=== PATIENT | male | born 1940 | race Caucasian/White ===

== ENCOUNTER → 2016-12-02 | Day surgery (SDC) | payer BC ==
[2016-11-26 12:52] VITALS: Ht 180.3 cm; Wt 90.9 kg
[~2016-12-02] VITALS: Ht 180.3 cm; Wt 90.9 kg
[~2016-12-02] MED LIST: ACETAMINOPHEN 325 MG TAB PO PRN; ALBUT/IPRATROP 3MG/0.5MG NEB 3 ML VIAL INH ONE; ALBUT/IPRATROP 3MG/0.5MG NEB 3 ML VIAL ONE; AMLO-114 PO; APR25 PO; ASPI-435 PO; ATOR-24 PO; ATROPINE SULFATE 1% OP OINT PER APPLICATION CHARGE ONE; BUPIVACAINE HCL 0.75% 10 ML AMP/VIAL ONE; CEFAZOLIN SOD 1 GM VIAL ONE; CLOP1TAB5 PO; DEXAMETHASONE SOD INJ 4 MG/ML VIAL ONE; EpINEphrine INJ 1MG/ML AMP 1 MG/ML AMP ONE; FENTANYL CITRATE INJ 50 MCG/1 ML 2 ML VIAL IV PRN; FRS/40 PO; HYALURONIDASE HUMAN 150 UNIT/ML INJ ONE; INDOCYANINE GREEN 25 MG/10 ML ONE; LACTATED RINGER'S 1000ML 1,000 ML IV PRN; LACTATED RINGER'S 1000ML 500 ML IV SCH; LIDOCAINE HCL 2% 2 ML VIAL (20MG/ML) ONE; LIDOCAINE MPF 4% INJ INJ ONE; METO50TA7 PO; MIDAZOLAM HCL 1 MG/ML 2ML VIAL ONE; NAPR-998 PO; NEOMYCIN/POLYMYX/DEXAMETH OP OINT PER APP CHARGE ONE; NIFE30TA83 PO; ONDANSETRON INJ 2 MG/ML 2 ML VIAL IV PRN; POTA10CA28 PO; PROPARACAINE 0.5% OP SOLN PER DROP CHARGE OPR SCH; PROPOFOL IV EMULSION 10 MG/ML 20 ML VIAL IV ONE; SUPER BETA PROSTATE PO; TAMS0.4C38 PO; TIMOLOL MALEATE 0.5% OP SOLN PER DROP CHARGE ONE; TRIAMCINOLONE ACETONIDE OPHTH 40 MG/ML VIAL STERILE IO ONE; respimat
[2016-12-02] MEDS: PHENYLEPHRINE HCL 2.5% OP SOLN PER DROP CHARGE OPR SCH ×2 (11:02→11:07)
[2016-12-02] MEDS: TROPICAMIDE 1% OP SOLN PER DROP CHARGE OPR SCH ×2 (11:03→11:08)
--- NOTE | 2016-12-02 11:26 | History & Physical Bridge - [place] ---
H&P Re-Evaluation Bridge Note: Pt has a epiretinal membrane in the right eye and is here for vitrectomy of the right eye. I have examined the patient, reviewed the History & Physical and in the interval since the performance of the History & Physical I have noted the following changes of clinical significance: No changes noted
--- NOTE | 2016-12-02 12:32 | Discharge Instructions-SurgCtr ---
Discharge Instructions Visit Reason for Visit: Right Eye Epiretinal Membrane Discharge Discharge Diagnosis / Problem: same Discharge Goals Goal(s): Improve function Activity Recommendations Activity Limitations: per Instructions/Follow-up section Anesthesia . Post Anesthesia Instructions: If you have had General Anesthesia or IV Sedation: * Do not drive today. * Resume driving when surgeon permits. * Do not make important decisions or sign legal documents today. * Call surgeon for: 1. Temperature elevations greater than 101 degrees F. 2. Uncontrollable pain. 3. Excessive bleeding. 4. Persistent nausea and vomiting. 5. Medication intolerance (nausea, vomiting or rash). * For nausea and vomiting use only clear liquids such as: tea, soda, bouillon until nausea subsides, then gradually increase diet as tolerated. * If you have any concerns or questions, call your surgeon's office. If physician is unavailable and it is an emergency, call 911 or go to the nearest emergency room. . Instructions / Follow-Up Instructions / Follow-Up * May take Tylenol if needed for discomfort. * Do NOT remove eye shield. * NO straining, heavy lifting (>15 pounds) or bending below waist. * Avoid getting water or soap directly into operative eye. * Do NOT rub eye. If you experience increasing eye pain not relieved by medication, please contact us immediately at [phone]. If you are unable to reach someone at the above number, call [phone] and ask to speak with the EYE DOCTOR SWIMMING PROFESSOR. Inform them that you are a Dr. Ashraf patient who had recent surgery. Procedures Procedures Performed: Right Eye 23 Gauge Vitrectomy, Membrane Peeling Pending Studies Studies pending at discharge: no Medical Emergencies . Who to Call and When: Medical Emergencies: If at any time you feel your situation is an emergency, please call 911 immediately. . Non-Emergent Contact Non-Emergency issues call your: Pharmacometrician . . "Provider Documentation" section prepared by Jacques Ashraf.
--- NOTE | 2016-12-02 12:34 | [facility] Operative Report ---
Operative Report PREOPERATIVE DIAGNOSIS: Epiretinal membrane, right eye. ICD10: H35.371 POSTOPERATIVE DIAGNOSIS: same. PROCEDURE: 1. Pars plana vitrectomy, 23 gauge. 2. Membrane peeling of the internal limiting membrane and overlying epiretinal membrane. All to the right eye. CPT CODE: 41966 SURGEON: Jacques Ashraf D.O. COMPLICATIONS: None. ESTIMATED BLOOD LOSS: None. SPECIMENS: None. ANESTHESIA: Retrobulbar block and MAC. INDICATIONS FOR PROCEDURE: The patient has an epiretinal membrane that is visually significant. Vitrectomy surgery is indicated to decrease risk of vision loss and potentially improve vision. CONSENT: The risks, benefits and alternatives were discussed with the patient including but not limited to decreased visual acuity, failure to achieve desired results, loss of the eye, infection, pain, glaucoma, lens changes, retinal tears, retinal detachment, the need for more procedures, drooping of the eyelid, blindness, and double vision. The patient is aware of risks and consents to the surgery. Consent is signed and on the chart. OPERATION AND FINDINGS: The patient was brought to the operating room where the patient was identified by name, date, and medical record number. The surgical site was confirmed with the informed written consent. The patient was sedated by the anesthesiology team after which a 50:50 mixture of 4% lidocaine and 0.75% bupivacaine with hyaluronidase was administered in a standard retrobulbar fashion. A total of 4 ml was administered without difficulty. The patient was then prepped and draped in the usual sterile manner for retinal surgery. A wire lid speculum was placed and an Can 23-gauge trocar cannula system was employed. The inferior temporal trocar cannula was first placed in an angled fashion 3.75mm posterior to the surgical limbus and the infusion cannula was inserted into this cannula after which the intravitreal position was verified prior to turning the infusion on. Two more trocar cannulas were then inserted in an angled fashion, one in the superior temporal, and one in the superior nasal quadrant both 3.75mm posterior to the surgical limbus. A light pipe and vitrector were then introduced into the eye and the BIOM wide angle viewing system was brought into place. Standard core vitrectomy was performed the vitreous was insured to be totally detached from the posterior pole with the aid of the vitrector. Next 0.05ml of indocyanine green was placed over the macular surface to stain the internal limiting membrane. This was washed from the eye after 10 seconds. At this point a flat contact lens was placed on the surface of the eye and a flex scraper and ILM forceps were used to gently peel the internal limiting membrane and overlying epiretinal membrane off of the macular surface without difficulty. At this point scleral depression was performed for 360 degrees and no retinal tears or detachments were noted. 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 The trocar cannulas were then removed and found to be water tight. The intraocular pressure was found to be within normal limits by palpation and subconjunctival injections of Kefzol and dexamethasone were administered inferiorly and superiorly. The wire lid speculum was removed. Maxitrol was applied to the surface of the eye. A light patch and shield were taped over the surface of the eye and the patient left the Operating Room in stable condition having tolerated the procedure well. DISPOSITION: The patient has an appointment the following morning in the Ophthalmology Clinic. The patient is to call immediately if there are any problems overnight. I attest to the content of the Intraoperative Record and any orders documented therein. Any exceptions are noted below.
[2016-12-02 12:36] VITALS: TEMP 36.3
--- NOTE | 2016-12-02 12:52 | Anesthesia Progress Nt - [facility] ---
Anesthesia Post Op Note Date & Time Dec 02, 2016 at 12:52 Vital Signs Pain Intensity: 0 Vital Signs Past 12 Hours Date Time Temp Pulse Resp B/P Pulse Ox O2 Delivery O2 Flow Rate FiO2 12/02/16 12:36 36.3 74 16 174/77 95 Room Air 12/02/16 10:50 36.3 78 20 161/69 95 Room Air Notes Mental Status: alert / awake / arousable, participated in evaluation Pt Amnestic to Procedure: Yes Nausea / Vomiting: adequately controlled Pain: adequately controlled Airway Patency, RR, SpO2: stable & adequate BP & HR: stable & adequate Hydration State: stable & adequate Anesthetic Complications: no major complications apparent Pt doing well.
[2016-12-02 13:00] VITALS: BP 159/75; PULSE 76; O2SAT 94
== END | disposition home or self-care (01) ==
LOC: X.SURG 10:21
PROVIDERS: ATTEND Ophthalmology
DX: H35.371 Puckering of macula, right eye (principal); I10 Essential (primary) hypertension; J44.9 Chronic obstructive pulmonary disease, unspecified; N18.9 Chronic kidney disease, unspecified; I25.10 Atherosclerotic heart disease of native coronary artery without angina pectoris